=== PATIENT | female | born 1985 ===

== ENCOUNTER 2018-02-22 02:01 | Emergency (ER) | payer OTHER ==
[2018-02-22 02:40] VITALS: BP 130/89; PULSE 86; RESP 17; TEMP 97.9; O2SAT 100
--- NOTE | 2018-02-22 03:58 | ED PDOC ---
HPI: General Adult Time Seen by Provider: 02/22/18 03:21 Chief Complaint (Nursing): ENT Problem Chief Complaint (Provider): right ear discomfort History Per: Patient History/Exam Limitations: no limitations Onset/Duration Of Symptoms: Days (2) Current Symptoms Are (Timing): Still Present Additional Complaint(s): 32 y/o female presents for evaluation of discomfort to right ear x 2 days, worse x 5 hours. Patient states her ears are always itchy due to dryness, notes has been scratching more than usual but now feels ear to be "clogged" or "swollen". Denies fever, nasal congestion/discharge, drainage from ear, cough. No medication taken for relief thus far. Past Medical History Reviewed: Historical Data, Nursing Documentation, Vital Signs Vital Signs: Last Vital Signs Temp 97.9 F 02/22/18 02:27 Pulse 86 02/22/18 02:27 Resp 17 02/22/18 02:27 BP 130/89 02/22/18 02:27 Pulse Ox 100 02/22/18 02:27 - Medical History PMH: No Chronic Diseases - Surgical History Surgical History: No Surg Hx - Family History Family History: States: No Known Family Hx - Living Arrangements Living Arrangements: With Family - Home Medications Home Medications: Ambulatory Orders Medication Instructions Recorded Neomycin/Polymyxin/Hydrocortis 4 drop OT TID #1 bottle 02/22/18 [Cortisporin Otic Susp] - Allergies Allergies/Adverse Reactions: Allergies Allergy/AdvReac Type Severity Reaction Status Date / Time No Known Allergies Allergy Verified 02/22/18 02:40 Review of Systems ROS Statement: Except As Marked, All Systems Reviewed And Found Negative ENT: Positive for: Ear Pain (right) Physical Exam - Reviewed Nursing Documentation Reviewed: Yes Vital Signs Reviewed: Yes - Physical Exam Appears: Positive for: Well, Non-toxic, No Acute Distress Head Exam: Positive for: ATRAUMATIC, NORMAL INSPECTION, NORMOCEPHALIC ENT: Positive for: TM Is/Are (Right EAC edematous, tender with speculum insertion. + tenderness with pinna manipulation and tragus palptation. Left EAC clear. TMs clear bilaterally) Cardiovascular/Chest: Positive for: Regular Rate, Rhythm Respiratory: Positive for: Normal Breath Sounds - ECG O2 Sat by Pulse Oximetry: 100 - Progress ED Course And Treament: Patient educated on findings, discharged with rx Cortisporin Advised follow up PMD 2-3 days Tylenol/ibuprofen PRN pain Return precautions given Disposition - Clinical Impression Clinical Impression: Otitis externa - Patient ED Disposition Is Patient to be Admitted: No Counseled Patient/Family Regarding: Diagnosis, Need For Followup, Rx Given - Disposition Referrals: Joel Cruz MD [Staff Provider] - [facility] [Outside] Disposition: Routine/Home Disposition Time: 03:59 Condition: IMPROVED Prescriptions: Neomycin/Polymyxin/Hydrocortis [Cortisporin Otic Susp] 4 drop OT TID #1 bottle Instructions: Outer Ear Infection
== END 2018-02-22 04:20 | disposition home or self-care (01) ==
LOC: H.ER 02:01
DX: H92.10 Otorrhea, unspecified ear (principal)